=== PATIENT | female | born 1980 | race Two or more races ===

== ENCOUNTER → 2016-04-03 | Outpatient (CLI) | payer OTHER ==
--- NOTE | 2016-04-03 17:28 | US ---
Complete Abdominal Sonography ICD 10 Diagnostic Code: R 10.11. CLINICAL HISTORY: 35-year-old female with epigastric pain for one month. Rule out gallbladder, biliar y, or hepatic pathology. TECHNIQUE: A curvilinear 5 MHz transducer was used to sonographically evaluate the upper abdomen. Col or Doppler is also used. COMPARISON STUDY: None. FINDINGS: The pancreatic contour is normal. The abdominal aorta is normal in size, and tapers normall y. The visualized portions of the IVC are normal in caliber. The hepatic vein trifurcation is normal. The main portal vein is patent. There is no ascites or pleural effusion. The liver is normal in size and homogeneous in echotexture, measuring 15.3 cm along the right midaxillary line. There is no foca l hepatic mass. There is no intra or extrahepatic bile duct dilatation. The common bile duct measures 2.2 mm. The gallbladder is moderately distended, with no stones, sludge, wall thickening, pericholec ystic fluid, or sonographic Black sign. The gallbladder wall thickness is 1.1 mm. The kidneys are no rmal in size, shape, and position, with no focal renal mass or hydronephrosis. The right kidney measu res 11.6 x 5.4 x 4.1 cm. The left kidney measures 10.7 x 4.8 x 4.6 cm. There is normal renal cortical thickness and echotexture. The spleen is normal, measuring 11.1 x 9.5 x 3.3 cm. IMPRESSION: Normal exam. As requested, results were called to Paty Reyes at 5:25 PM on April 03, 2016, and I transferre d her phone call to the [facility] waiting room to speak with the patient.
== END ==
LOC: FIMAGING 16:28
PROVIDERS: ATTEND Naturopath
DX: R10.11 Right upper quadrant pain (principal); R10.13 Epigastric pain